=== PATIENT | female | born 1950 | race Caucasian/White ===

== ENCOUNTER 2016-10-18 10:55 | Emergency (ER) | payer OTHER, MEDICARE ==
[~2016-10-18] VITALS: Ht 165.1 cm; Wt 65.3 kg
--- NOTE | 2016-10-18 11:03 | ED DYSPNEA/ASTHMA COMPLAINT ---
History of Present Illness General Chief Complaint: Dyspnea (COPD, CHF, Other) Stated Complaint: BIBA FOR SOB Source: patient, EMS Exam Limitations: no limitations Vital Signs & Intake/Output Vital Signs & Intake/Output Vital Signs Date Time Temp Pulse Resp B/P B/P Pulse O2 O2 Flow FiO2 Mean Ox Delivery Rate 10/18 1304 97.1 74 16 118/75 99 Room Air 10/18 1139 98 Room Air 10/18 1100 97.1 79 16 162/93 98 Room Air Allergies Coded Allergies: NO KNOWN ALLERGIES (09/25/10) Reconcile Medications Aspirin (Aspirin*) 81 MG TAB.CHEW 1 TAB PO DAILY HEART HEALTH (Reported) Carbidopa/Levodopa (Carbidopa-Levodopa 25-100 Tab) 25 MG-100 MG TABLET 1 TAB PO TID PARKINSONS (Reported) Cholecalciferol (Vitamin D3) (Vitamin D3) 3,000 UNIT TABLET 2 TAB PO DAILY VITAMIN SUPPORT (Reported) [CHOLESTEROL WELL] 800 MG TAB 2 TAB PO DAILY CHOLESTEROL (Reported) Cyanocobalamin (Vitamin B-12) (B-12 Dots) 500 MCG TABLET 2 TAB PO DAILY VITAMIN SUPPORT (Reported) Estradiol (Estrace) 0.01 % CREAM.APPL 2 GM VG 3XW ESTROGEN (Reported) Estradiol (Vagifem) 10 MCG TABLET 1 TAB PO QW ESTROGEN (Reported) Lactobacillus Acidophilus (Probiotic) 10 BILLION CELL CAPSULE 2 CAP PO BID GI (Reported) Lisinopril 10 MG TABLET 1 TAB PO DAILY HEART (Reported) Loratadine (Claritin) 5 MG TAB.RAPDIS 1 TAB PO BID PRN ALLERGIES (Reported) Multivitamin With Minerals (Hair, Skin & Nails) 1 EACH TABLET 2 TAB PO DAILY VITAMIN SUPPORT (Reported) Nitroglycerin (Nitrostat) 0.4 MG TAB.SUBL 1 TAB SL AD PRN CHEST PAIN ( Reported) 1st sign of attack; may repeat every 5 minutes until relief; if pain persists after 3 tablets in 15 minutes, prompt medical att Pantoprazole Sodium 40 MG TABLET.DR 1 TAB PO BID GI (Reported) Rosuvastatin Calcium (Crestor) 5 MG TABLET 0.5 TAB PO DAILY CHOLESTEROL ( Reported) Ticagrelor (Brilinta) 60 MG TABLET 1 TAB PO BID BLOOD THINNER (Reported) Ubidecarenone (Co Q-10) 200 MG CAPSULE 2 CAP PO DAILY SUPPLEMENT (Reported) Triage Nurses Notes Reviewed? yes HPI: Patient was walking into physical therapy when she was getting a little bit short of breath. This is been happening to her pretty frequently over the past few days. Patient states that she starts to feel anxious and then get short of breath. Patient states that there are other times that she is able to exercise without any problems. There is no chest pain or palpitations. Patient was recently diagnosed with Parkinson's and she feels that that is what is making her anxious. Patient denies any orthopnea. There are no fevers or chills. No coughing. She was sent to the emergency department for evaluation. Upon presentation in the emergency department patient is complaint free. Past History Travel History Traveled to [place] past 21 day No Medical History Any Pertinent Medical History? see below for history Neurological: Parkinson's disease Cardiovascular: hypertension Pneumonia Vaccine: 02/03/09 Surgical History Surgical History: non-contributory Psychosocial History Who do you live with Spouse Services at Home None What is your primary language Swedish Tobacco Use: Never used ETOH Use: denies use Illicit Drug Use: denies illicit drug use Family History Hx Contributory? No Review of Systems Review of Systems Constitutional: Reports: no symptoms. EENTM: Reports: no symptoms. Respiratory: Reports: see HPI, short of breath. Cardiovascular: Reports: no symptoms. GI: Reports: no symptoms. Genitourinary: Reports: no symptoms. Musculoskeletal: Reports: no symptoms. Skin: Reports: no symptoms. Neurological/Psychological: Reports: see HPI, anxiety. Hematologic/Endocrine: Reports: no symptoms. Immunologic/Allergic: Reports: no symptoms. All Other Systems: Reviewed and Negative Physical Exam Physical Exam General Appearance: well developed/nourished, alert, awake, anxious, mild distress Head: atraumatic Eyes: Bilateral: PERRL, EOMI. Ears, Nose, Throat: normal pharynx, normal ENT inspection, hearing grossly normal Neck: normal inspection, supple, full range of motion Respiratory: normal breath sounds, chest non-tender, no respiratory distress, lungs clear Cardiovascular: regular rate/rhythm, normal peripheral pulses Gastrointestinal: normal bowel sounds, soft, non-tender, no organomegaly Extremities: normal inspection, normal capillary refill, normal range of motion, no edema Neurologic/Psych: no motor/sensory deficits, awake, alert, oriented x 3, normal gait, normal mood/affect Skin: intact, normal color, warm/dry Lymphatic: no anterior cervical kirstie Core Measures ACS in differential dx? No Severe Sepsis Present: No Septic Shock Present: No Progress Differential Diagnosis: AMI, bronchitis, CHF, COPD, pulmonary embolism, pneumonia, pneumothorax Plan of Care: Orders Procedure Date/time Status EKG 10/18 1117 Active TROPONIN LEVEL 10/18 110 Complete D-DIMER 10/18 1103 Complete COMPREHENSIVE METABOLIC PANEL 10/18 1103 Complete CBC WITHOUT DIFFERENTIAL 10/18 110 Complete B-TYPE NATRIURETIC PEP (BNP) 10/18 110 Complete Laboratory Tests 10/18/16 1125: Anion Gap 9, Estimated GFR > 60, BUN/Creatinine Ratio 30.0 H, Glucose 94, Calcium 10.2, Total Bilirubin 0.7, AST 17, ALT 21, Alkaline Phosphatase 68, Troponin I < 0.01, Erm-H-Aagphzpzbsx Pept 245 H, Total Protein 6.5, Albumin 4.0 , Globulin 2.5, Albumin/Globulin Ratio 1.6, D-Dimer High Sensitivty < 200, CBC w Diff NO MAN DIFF REQ, RBC 4.76, MCV 87.2, MCH 28.9, RDW 13.5, MPV 8.1, Gran % 65.9, Lymphocytes % 25.6, Monocytes % 8.1, Eosinophils % 0.3, Basophils % 0.1, Absolute Granulocytes 3.7, Absolute Lymphocytes 1.4, Absolute Monocytes 0.5, Absolute Eosinophils 0, Absolute Basophils 0, PUBS MCHC 33.2 Diagnostic Imaging: Viewed by Me: Radiology Read. Discussed w/RAD: Radiology Read. CXR Impression: PATIENT: NAYLA CABRERA PRESENT AGE: 66 PATIENT ACCOUNT NO: [id number] : 48 LOCATION: [facility] ORDERING PHYSICIAN: MAGGIE GASTON MD SERVICE DATE: 10/18/16 EXAM TYPE: RAD - XRY-PORTABLE CHEST XRAY EXAMINATION: XR PORTABLE CHEST CLINICAL INFORMATION: Dyspnea on exertion COMPARISON: 01/25/2013 TECHNIQUE: Portable frontal view of the chest was obtained. FINDINGS: Cardiac leads overlie the chest. Surgical clips overlie the left axilla and hemithorax. The lungs are well expanded. There is no focal consolidation, edema, or effusion. No pneumothorax. The cardiomediastinal silhouette is within normal limits. No acute osseous abnormality. IMPRESSION: No acute pulmonary findings. DICTATED BY: SHREYA GARCIA MD DATE/TIME DICTATED:10/18/161122 ANIME DESIGNER:JOE DATE/ TIME TRANSCRIBED:10/18/161122 CONFIDENTIAL, DO NOT COPY WITHOUT APPROPRIATE AUTHORIZATION. <Electronically signed in Other Vendor System> SIGNED BY: RADHA DON,SHREYA 10/18/161128 Initial ED EKG: NSR, no ST T wave changes Comments: Patient is feeling much better. Patient ambulated in the emergency department without difficulty or shortness of breath. Departure Departure Disposition: HOME OR SELF CARE Condition: Stable Clinical Impression Primary Impression: Dyspnea Referrals: MOHINI DON,JORDAN TAMAYO (PCP/Family) Additional Instructions: RETURN IF SYMPTOMS WORSEN OR FOR ANY CONCERNS Departure Forms: Customer Survey General Discharge Information Critical Care Note Critical Care Note Critical Care Time: non-applicable
--- NOTE | 2016-10-18 11:29 | RADIOLOGY REPORT ---
EXAMINATION: XR PORTABLE CHEST CLINICAL INFORMATION: Dyspnea on exertion COMPARISON: 01/25/2013 TECHNIQUE: Portable frontal view of the chest was obtained. FINDINGS: Cardiac leads overlie the chest. Surgical clips overlie the left axilla and hemithorax. The lungs are well expanded. There is no focal consolidation, edema, or effusion. No pneumothorax. The cardiomediastinal silhouette is within normal limits. No acute osseous abnormality. IMPRESSION: No acute pulmonary findings.
[2016-10-18 11:45] LABS: ABSOLUTE BASOPHIL COUNT 0 /CUMM (0.0-0.2); ABSOLUTE EOSINOPHIL COUNT 0 /CUMM (0.0-0.7); ABSOLUTE GRANULOCYTE CT 3.7 /CUMM (1.4-6.5); ABSOLUTE LYMPH COUNT 1.4 /CUMM (1.2-3.4); ABSOLUTE MONOCYTE COUNT 0.5 /CUMM (0.10-0.60); BASOPHIL % 0.1 % (0.0-2.0); EOSINOPHIL % 0.3 % (0-5); GRANULOCYTE % 65.9 % (42.2-75.2); HEMATOCRIT 41.5 % (37-47); MEAN CORPUSCULAR HGB 28.9 PG (27.0-31.0); MEAN CORPUSCULAR HGB CONC 33.2 G/DL (33.0-37.0); MEAN CORPUSCULAR VOLUME 87.2 FL (81.0-99.0); MEAN PLATELET VOLUME 8.1 FL (7.4-10.4); PLATELET COUNT 257 /CUMM (130-400); RBC DISTRIBUTION WIDTH 13.5 % (11.5-14.5); RED BLOOD CELL CT 4.76 /CUMM (4.20-5.40); WHITE BLOOD CELL COUNT 5.5 /CUMM (4.8-10.8)
[2016-10-18] MEDS ORDERED: CARBIDOPA-LEVO1 EAC7 PO (12:14)
[2016-10-18] MEDS ORDERED: ASPIRIN81 M4 PO (12:15)
[2016-10-18] MEDS ORDERED: BRILINTA60 MG PO (12:15)
[2016-10-18] MEDS ORDERED: LISINOPRIL10 M1 PO (12:15)
[2016-10-18] MEDS ORDERED: PANTOPRAZOLE SO40 M1 PO (12:16)
[2016-10-18] MEDS ORDERED: CRESTOR5 M1 PO (12:16)
[2016-10-18] MEDS ORDERED: NITROSTAT0.4 M1 SL (12:18)
[2016-10-18] MEDS ORDERED: [UNRECOGNIZED DRUG - OTHER] PO (12:18)
[2016-10-18] MEDS ORDERED: VAGIFEM10 MC1 PO (12:19)
[2016-10-18] MEDS ORDERED: ESTRACE42.5 GM VG (12:20)
[2016-10-18] MEDS ORDERED: VITAMIN D33000 UNIT PO (12:20)
[2016-10-18] MEDS ORDERED: HAIR, SKIN & N1 EACH PO (12:22)
[2016-10-18] MEDS ORDERED: B-12 DOTS500 MCG PO (12:22)
[2016-10-18] MEDS ORDERED: CO Q-10200 MG PO (12:23)
[2016-10-18] MEDS ORDERED: CLARITIN5 MG PO (12:23)
[2016-10-18] MEDS ORDERED: PROBIOTIC1 EACH PO (12:24)
[2016-10-18 13:04] VITALS: BP 118/75
== END 2016-10-18 13:46 ==
LOC: ERH 10:55
PROVIDERS: Emergency Medicine
DX: R06.00 Dyspnea, unspecified (principal)
CPT/HCPCS: 93005; 93010